=== PATIENT | female | born 1975 ===

== ENCOUNTER → 2022-07-28 | Outpatient (CLI) | payer BC ==
[2022-07-29 10:30] LABS: Candida species (DNA Probe) Negative (NEGATIVE); G. vaginalis (DNA Probe) Positive (NEGATIVE); T. vaginalis (DNA Probe) Negative (NEGATIVE)
== END ==
LOC: LAB SHORT 09:30
PROVIDERS: Family Medicine
DX: Z12.4 Encounter for screening for malignant neoplasm of cervix (principal); B37.31 Acute candidiasis of vulva and vagina
CPT/HCPCS: 87480; 87510; 87660

== ENCOUNTER → 2022-10-25 | Outpatient (CLI) | payer BC | END | disposition home or self-care (01) | LOC: LAB SHORT 11:44 | DX: R14.0 Abdominal distension (gaseous) (principal) | CPT/HCPCS: 87338 ==